=== PATIENT | female | born 1945 | race Two or more races ===

== ENCOUNTER 2018-09-16 03:09 | Emergency (ER) | payer MEDICARE, MEDICAID ==
[~2018-09-16] VITALS: Ht 157.5 cm; Wt 77.1 kg
[2018-09-16] MEDS ORDERED: ONDANSETRON HCL/PF 4 MG/2 ML VIAL ONE ×2 (03:23→04:33)
--- NOTE | 2018-09-16 03:25 | NUR ---
PT BIB [facility] WITH A C/O N/V TRACK HELPER. PT WOKE UP TO GO TO THE BATHROOM AND PROJECTILE VOMITTED. PT SOILED HER PANTS WHEN THIS OCCURED. PT'S DAUGHTER CLEANED THE PT UP. PT ARRIVED FEBRILE AND TACHY. PT IS ON THE MONITOR AND CONTINUOUS PULSE OX.
[2018-09-16] MEDS ORDERED: ONDANSETRON HCL/PF 4 MG/2 ML VIAL IVP ONE (03:30)
[2018-09-16] MEDS ORDERED: IV NS 0.9% 1,000 ML BAG IV ONE (03:30)
[2018-09-16 03:51] LABS: BASOPHILS % (AUTO) 0.3 % (0.0-2.0); EOSINOPHILS % (AUTO) 0.3 % (0.0-6.0); HEMATOCRIT 42 % (33-45); HEMOGLOBIN 13.7 g/dL (11.5-14.8); LYMPHOCYTES # (AUTO) 0.8 /CMM (0.8-4.8); LYMPHOCYTES % (AUTO) 6.8 % (20.0-44.0); MEAN CORPUSCULAR HGB CONC 33 g/dl (31.0-36.0); MEAN CORPUSCULAR VOLUME 84 fL (82-100); MONOCYTES # (AUTO) 0.4 /CMM (0.1-1.30); MONOCYTES % (AUTO) 3.4 % (2.0-12.0); NEUTROPHILS # (AUTO) 10.2 /CMM (1.8-8.9); NEUTROPHILS % (AUTO) 89.2 % (43.0-81.0); PLATELET COUNT (AUTO) 242 /CMM (150-450); RED BLOOD CELL COUNT(AUTO) 5.01 MIL/uL (4.0-5.2); WHITE BLOOD COUNT (AUTO) 11.4 K/uL (4.3-11.0)
--- NOTE | 2018-09-16 03:54 | NUR ---
PT IS GOING TO CT VIA [employer].
[2018-09-16] MEDS ORDERED: PANTOPRAZOLE 40 MG VIAL ONE (03:59)
[2018-09-16] MEDS ORDERED: PANTOPRAZOLE 80 MG in IV NS 0.9% 100 ML IV ONE (04:00)
[2018-09-16 04:04] LABS: CALCIUM, SERUM 9.2 mg/dL (8.5-10.1); CARBON DIOXIDE 28 mmol/L (21-32); CHLORIDE 104 mmol/L (98-107); GLUCOSE 151 mg/dL (74-106); POTASSIUM 3.3 mmol/L (3.5-5.1); SODIUM SERUM 143 mmol/L (136-145); UREA NITROGEN, BLOOD 15 mg/dL (7-18)
[2018-09-16 04:10] LABS: ALANINE AMINOTRANSFERASE 25 U/L (12-78); ALKALINE PHOSPHATASE 52 U/L (46-116); ASPARTATE AMINOTRANSFERASE 18 U/L (15-37); BILIRUBIN,DIRECT 0.1 mg/dL (0.0-0.2); BILIRUBIN,TOTAL 0.5 mg/dL (0.2-1.0); LIPASE 137 U/L (73-393); TOTAL PROTEIN, SERUM 8.2 g/dL (6.4-8.2)
--- NOTE | 2018-09-16 04:16 | NUR ---
CXR IN PROGRESS AT THE BEDSIDE.
--- NOTE | 2018-09-16 04:17 | NUR ---
CXR IN PROGRESS AT THE BEDSIDE.
--- NOTE | 2018-09-16 04:17 | NUR ---
PT'S DAUGHTER ARRIVED AND IS AT THE BEDSIDE.
--- NOTE | 2018-09-16 04:17 | NUR ---
MIKE, PSYCHOLOGIST [employer] IS AT THE BEDSIDE.
--- NOTE | 2018-09-16 04:26 | NUR ---
PT HAD A SMALL AMOUNT OF EMESIS ON THE BLANKET. NOTIFIED.
[2018-09-16] MEDS ORDERED: ACETAMINOPHEN 325 MG TABLET PO ONE (04:30)
[2018-09-16] MEDS ORDERED: ACETAMINOPHEN ES 500 MG TABLET ONE ×2 (04:32→07:28)
--- NOTE | 2018-09-16 04:40 | NUR ---
PT REC'D NAUSEA MEDICINE ORDERED.
--- NOTE | 2018-09-16 04:46 | NUR ---
ONLY 1 EKG WAS DONE. 2ND ORDER WAS CANCELLED BY .
[2018-09-16] MEDS ORDERED: ONDANSETRON HCL/PF 4 MG/2 ML VIAL IV ONE (05:00)
--- NOTE | 2018-09-16 05:07 | NUR ---
PT HAD TO USE THE BATHROOM. PT WAS PLACED ON A BED ZAMBRANO. PT HAD RESIDUE FROM THE DIARRHE[employer] EDGER MACHINE SETTER ON BLE. PT WAS CLEANED AND NEW LINENS WERE APPLIED TO THE GURNEY. URINE SAMPLE SENT TO LAB.
--- NOTE | 2018-09-16 05:25 | NUR ---
PT ACCEPTED TO [facility] [address] BY DR HANSEN. BED AVAILABLE AT 0700. # FOR REPORT [phone]
--- NOTE | 2018-09-16 06:06 | NUR ---
[facility] CALLED FOR TRANSPORT. ETA [phone]. TRIP# [id number]
--- NOTE | 2018-09-16 06:40 | NUR ---
REPORT GIVEN TO KRISTEN FLANAGAN AT [facility]
--- NOTE | 2018-09-16 06:48 | NUR ---
PT STATED THAT SHE HAD TO GO TO THE BATHROOM. PT WAS PLACED ON A BEDPAN.
[2018-09-16 06:59] LABS: APPEARANCE,URINE SL CLOUDY (CLEAR); BILIRUBIN,URINE NEGATIVE (NEGATIVE); BLOOD, URINE 1+ Ery/uL (NEGATIVE); COLOR,URINE YELLOW (YELLOW); KETONES,URINE NEGATIVE (NEGATIVE); LEUKOCYTE ESTERASE ,URINE 1+ (NEGATIVE); NITRITE, URINE NEGATIVE (NEGATIVE); PH,URINE 7.5 (5.0-8.0); PROTEIN,URINE NEGATIVE (NEGATIVE); UGLUCOSE NEGATIVE (NEGATIVE); UROBILINOGEN,URINE 0.2 EU/dL (0.2)
--- NOTE | 2018-09-16 07:03 | NUR ---
BED ZAMBRANO WAS REMOVED. PT HAD APPROX 500 ML YELLOW URINE OUTPUT.
--- NOTE | 2018-09-16 07:12 | NUR ---
REPORT GIVEN TO KRISTEN CHAMBERS FOR [facility].
[2018-09-16 07:18] LABS: BACTERIA,URINE 3+ /HPF (None Seen); MUCUS,URINE Few /LPF (None Seen); URINE AMORPHOUS URATE Few /HPF (None Seen)
[2018-09-16] MEDS ORDERED: ACETAMINOPHEN ES 500 MG TABLET PO ONE (07:30)
[2018-09-16 08:12] VITALS: BP 115/54
--- NOTE | 2018-09-16 08:14 | NUR ---
ambulance came to [facility] the patient going to [facility], in no apparent distress noted. Daughter at bedside at time of transfer. aware.
== END 2018-09-16 08:14 | disposition short-term general hospital (02) ==
LOC: ER 03:10
DX: K92.2 Gastrointestinal hemorrhage, unspecified (principal); I10 Essential (primary) hypertension; R94.31 Abnormal electrocardiogram [ECG] [EKG]; Z98.890 Other specified postprocedural states
CPT/HCPCS: 36415; 71045-TC; 80048-TC; 80076-TC; 81000-TC; 83605-TC; 83690-TC; 84484-TC; 85025-TC; 85730-TC; 86850-TC; 87040-TC; 87086-TC; C9113; J2405; J7030; J7060